=== PATIENT | female | born 1935 | race Caucasian/White ===

== ENCOUNTER 2017-01-31 07:57 | Day surgery (SDC) | payer OTHER ==
[2017-01-31] MEDS ORDERED: FAMOTIDINE 20 MG TAB PO ONE (08:05)
[2017-01-31] MEDS ORDERED: ASPIRIN EC 325 MG TAB PO ONE (08:05)
[2017-01-31] MEDS ORDERED: NS 1,000 ML IV ONE (08:05)
[2017-01-31] MEDS ORDERED: DIAZEPAM 5 MG TAB PO ONE (08:05)
[2017-01-31] MEDS ORDERED: diphenhydrAMINE 25 MG CAP PO ONE (08:05)
--- NOTE | 2017-01-31 08:32 | CPEKG ---
Heart Rate: 47 RR Interval: 1277 P-R Interval: 228 QRSD Interval: 106 QT Interval: 488 QTC Interval: 432 P [place]: 34 QRS [place]: -57 T Wave [place]: 55 EKG Severity - ABNORMAL ECG - EKG Impression: SINUS BRADYCARDIA EKG Impression: LEFT ANTERIOR FASCICULAR BLOCK EKG Impression: LEFT VENTRICULAR HYPERTROPHY Electronically Signed By: Stevie White 31-Jan-2017 11:12:08
[2017-01-31 08:51] LABS: % IMMATURE GRANULYOCYTES 0.3 % (0.0-1.1); ABSOLUTE IMMATURE GRANULOCYTES 0.03 10^3/uL (0.00-0.10); ADD DIFF? NO; ADD MORPH? NO; ADD SCAN? NO; ATYPICAL LYMPHOCYTE FLAG 0 (0-99); FRAGMENT RBC FLAG 0 (0-99); HEMATOCRIT 46.1 % (38.0-47.0); HEMOGLOBIN 15.6 g/dL (12.6-16.3); LEFT SHIFT FLG 0 (0-99); LIPEMIA HEMOLYSIS FLAG 90 (0-99); MEAN CELL HEMOGLOBIN 30.4 pg (27.9-34.1); MEAN CELL HEMOGLOBIN CONCENTR. 33.8 g/dL (32.4-36.7); MEAN CELL VOLUME 89.9 fL (81.5-99.8); MEAN PLATELET VOLUME 9.3 fL (8.7-11.7); PLATELET CLUMPS FLAG 10 (0-99); PLATELET COUNT 257 10^3/uL (150-400); RED BLOOD CELL COUNT 5.13 10^6/uL (4.18-5.33); RED CELL DISTRIBUTION WIDTH 13.4 % (11.5-15.2)
[2017-01-31 08:59] LABS: INR 1.09 (0.83-1.16)
[2017-01-31 09:03] LABS: ANION GAP 11 mEq/L (8-16); CALCIUM 9.8 mg/dL (8.5-10.4); CARBON DIOXIDE 25 mEq/l (22-31); CHLORIDE 105 mEq/L (97-110); CHOLESTEROL 145 mg/dL (140-220); CHOLESTEROL/HDL RATIO 2.34 RATIO (1.00-4.44); CREATININE 1.4 mg/dL (0.6-1.0); GLOMERULAR FILTRATION RATE 36; GLUCOSE 87 mg/dL (70-100); HIGH DENSITY LIPOPROTEIN 62 mg/dL (40-85); LDL/HDL RATIO 0.89 RATIO (1.00-3.22); LOW DENSITY LIPOPROTEIN 55 mg/dL (80-100); MAGNESIUM 2.3 mg/dL (1.6-2.3); NON-HIGH DENSITY LIPOPROTEIN 83 mg/dL (90-129); POTASSIUM 5.1 mEq/L (3.5-5.2); SODIUM 141 mEq/L (134-144); TRIGLYCERIDE 143 mg/dL (35-135); VERY LOW DENSITY LIPOPROTEINS 28 mg/dL (8-25)
[2017-01-31] MEDS ORDERED: LIDOCAINE 1% 300 MG/30 ML SDV ONE (09:39)
[2017-01-31] MEDS ORDERED: fentaNYL 100 MCG/2 ML INJ ONE (09:40)
[2017-01-31] MEDS ORDERED: MIDAZOLAM 2 MG/2 ML VIAL ONE (09:40)
[2017-01-31] MEDS ORDERED: IOPAMIDOL (ISOVUE-370) 150 ML BTL IV ONE (09:40)
[2017-01-31] MEDS ORDERED: ATROPINE SULFATE 1 MG/10 ML SYR ONE (11:12)
--- NOTE | 2017-01-31 11:26 | PDDXCAT ---
Diagnostic Cath Note - . 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 LAD: Mid-LAD 70-80% with competitive flow distally; large first diagonal without significant disease. LCX: Mid-circumflex 100%. RCA: Stented segment in proximal RCA patent; o/w mild irregularities. EDP: N/A LVEF: No LV-gram secondary to aortic stenosis and renal insufficiency. - Findings-Right Heart Catheterization RA: 3 mmHg RV: 31/7 mmHg PA: 31/9/16 mmHg (O2 sat 71.3%) PAOP: 10 mmHg AO: 146/49/82 mmHg (O2 sat 89.9%) CO: 5.92 L/min CI: 3.17 L/min/sq mtr Complications: None Estimated blood loss: <50ml Closure method: manual pressure Assessment: 1) Coronary artery disease as described above. 2) Patent ROMAN to LAD graft. 3) Known occlusions of separate SVGs to OM branch and distal RCA. 4 ) Patent proximal RCA stent site. 5) Normal right heart pressures. 6) Minimal aortoiliac atherosclerosis; good caliber common iliac and femoral vessels bilaterally. Plan: The patient will be following up at the [facility] for further consideration of TAVR.
== END 2017-01-31 15:18 | disposition home or self-care (01) ==
LOC: FCATH 07:57
PROVIDERS: ATTEND Internal Medicine Interventional Cardiology
PROC: 4A023N7 Measurement of Cardiac Sampling and Pressure, Left Heart, Percutaneous Approach (ICD-10-PCS; principal; 2017-01-31)
PROC: B2151ZZ Fluoroscopy of Left Heart using Low Osmolar Contrast (ICD-10-PCS; principal; 2017-01-31)
PROC: B2111ZZ Fluoroscopy of Multiple Coronary Arteries using Low Osmolar Contrast (ICD-10-PCS; principal; 2017-01-31)
DX: I35.0 Nonrheumatic aortic (valve) stenosis (principal); I25.10 Atherosclerotic heart disease of native coronary artery without angina pectoris; E78.00 Pure hypercholesterolemia, unspecified; I10 Essential (primary) hypertension; E78.5 Hyperlipidemia, unspecified; I48.0 Paroxysmal atrial fibrillation
CPT/HCPCS: J0461; J1644; J2250; J3010; Q9967

== ENCOUNTER 2017-10-08 18:45 | Emergency (ER) | payer OTHER ==
--- NOTE | 2017-10-08 19:22 | EDPHY ---
H & P Stated Complaint: heart fluttering starting this morning, has ppm Time Seen by Provider: 10/08/17 19:05 HPI/ROS: CHIEF COMPLAINT: Palpitations HISTORY OF PRESENT ILLNESS: The patient presents to the emergency department with palpitations for the past day. The patient has a history of a TAVR and pacemaker performed at [facility] in February of 2017. The patient is currently anticoagulated. 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 The patient denies any chest pain, fever, cough or congestion. She has not had syncope. The patient does have a history of CABG. She currently is under the care of Dr. Wright from Cardiology. REVIEW OF SYSTEMS: A comprehensive 10 point review of systems is otherwise negative aside from elements mentioned in the history of present illness. Source: Patient Exam Limitations: No limitations - Personal History Current Tetanus/Diphtheria Vaccine: Yes Current Tetanus Diphtheria and Acellular Pertussis (TDAP): Yes Tetanus Vaccine Date: < 10 years - Medical/Surgical History Hx Asthma: No Hx Chronic Respiratory Disease: No Hx Diabetes: No Hx Cardiac Disease: Yes Hx Renal Disease: No Hx Cirrhosis: No Hx Alcoholism: No Hx HIV/AIDS: No Hx Splenectomy or Spleen Trauma: No Other PMH: ppm, afib, htn, hyperlipidemia, CABG, stent, total knee, cataract sx , aortic valve - Social History Smoking Status: Never smoked - Physical Exam Exam: General Appearance: Alert, no distress Eyes: Pupils equal and round no pallor or injection ENT, Mouth: Mucous membranes moist Respiratory: There are no retractions, lungs are clear to auscultation Cardiovascular: Regular rate and rhythm Gastrointestinal: Abdomen is soft and nontender, no masses, bowel sounds normal Neurological: A&O, normal motor function, normal sensory exam, normal cranial nerves Skin: Warm and dry, no rashes Musculoskeletal: Neck is supple nontender Extremities: symmetrical, full range of motion Constitutional: Initial Vital Signs Temperature (C) 36.5 C 10/08/17 18:48 Heart Rate 65 10/08/17 18:48 Respiratory Rate 20 10/08/17 18:48 Blood Pressure 155/81 H 10/08/17 18:48 O2 Sat (%) 96 10/08/17 18:48 O2 Delivery Mode Room Air Allergies/Adverse Reactions: MANNY Inhibitors Allergy (Verified 10/08/17 18:47) morphine Allergy (Verified 02/11/18 18:47) Sulfa (Sulfonamide Antibiotics) Allergy (Verified 10/08/17 18:47) Home Medications: Medication Instructions Recorded Bystolic 10/08/17 CLONAZEPAM 10/08/17 Crestor 10/08/17 Pradaxa 10/08/17 amLODIPine BESYLATE 10/08/17 Medical Decision Making - Diagnostics EKG Interpretation: EKG: Complete interpretation has been separately recorded in the [facility] archive. Summary impression: Paced rhythm with occasional wide complex regular tachycardia. ED Course/Re-evaluation: The patient presents the ED with a chief complaint of palpitations and is noted to have an episodic wide complex tachycardia. I did curbside Dr. De León who is on-call for Cardiology and we reviewed the patient's EKG. At this point time it is uncertain whether the patient is having a pacemaker mediated tachycardia or atrial arrhythmia. We have contacted the pacemaker rep who is in route to interrogate the device. Per [employer]'s initial recommendation, no anti-arrhythmic medications have been ordered pending results of the pacemaker interrogation. The patient was placed on a spooler operator automatic. She remained hemodynamically stay throughout her bouts of tachycardia. 9:30 p.m.: The patient was evaluated by the pacemaker patient access representative. She is noted to have a pacemaker mediated tachycardia. He has reprogrammed her pacemaker. I informed Dr. De León of the findings. The patient will be discharged from the emergency department and follow up with her regular safety council director as scheduled. Differential Diagnosis: Differential diagnosis considered includes atrial fibrillation, atrial flutter, ventricular tachycardia, pacemaker mediated tachycardia - Data Points Laboratory Results: Laboratory Results 10/08/17 19:05 10/08/17 19:05 10/08/17 10/08/17 19:05 19:05 WBC 10.42 10^3/uL H 10^3/uL (3.80-9.50) RBC 5.30 10^6/uL 10^6/uL (4.18-5.33) Hgb 15.6 g/dL g/dL (12.6-16.3) Hct 46.5 % % (38.0-47.0) MCV 87.7 fL fL (81.5-99.8) MCH 29.4 pg pg (27.9-34.1) MCHC 33.5 g/dL g/dL (32.4-36.7) RDW 14.5 % % (11.5-15.2) Plt Count 219 10^3/uL 10^3/uL (150-400) MPV 9.6 fL fL (8.7-11.7) Neut % (Auto) 52.0 % % (39.3-74.2) Lymph % (Auto) 37.2 % % (15.0-45.0) Sac % (Auto) 8.3 % % (4.5-13.0) Eos % (Auto) 1.4 % % (0.6-7.6) Baso % (Auto) 0.7 % % (0.3-1.7) Nucleat RBC Rel Count 0.0 % % (0.0-0.2) Absolute Neuts (auto) 5.41 10^3/uL 10^3/uL (1.70-6.50) Absolute Lymphs (auto) 3.88 10^3/uL H 10^3/uL (1.00-3.00) Absolute Monos (auto) 0.87 10^3/uL H 10^3/uL (0.30-0.80) Absolute Eos (auto) 0.15 10^3/uL 10^3/uL (0.03-0.40) Absolute Basos (auto) 0.07 10^3/uL 10^3/uL (0.02-0.10) Absolute Nucleated RBC 0.00 10^3/uL 10^3/uL (0-0.01) Immature Gran % 0.4 % % (0.0-1.1) Immature Gran # 0.04 10^3/uL 10^3/uL (0.00-0.10) Sodium 144 mEq/L mEq/L (135-145) Potassium 4.1 mEq/L mEq/L (3.5-5.2) Chloride 104 mEq/L mEq/L (97-110) Carbon Dioxide 24 mEq/l mEq/l (22-31) Anion Gap 16 mEq/L mEq/L (8-16) BUN 25 mg/dL H mg/dL (7-23) Creatinine 1.3 mg/dL H mg/dL (0.6-1.0) Estimated GFR 39 Glucose 109 mg/dL H mg/dL (70-100) Calcium 9.9 mg/dL mg/dL (8.5-10.4) Medications Given: Discontinued Medications Sodium Chloride (Ns) 1,000 mls @ 0 mls/hr IV EDNOW ONE; Wide Open PRN Reason: Protocol Stop: 10/08/17 19:29 Last Admin: 10/08/17 19:37 Dose: 1,000 mls Amiodarone HCl (Amiodarone Hcl) 100 mls @ 600 mls/hr IV ONCE ONE Stop: 10/08/17 19:47 Last Admin: 10/08/17 19:56 Dose: Not Given Departure - Departure Disposition: Home, Routine, Self-Care Clinical Impression: Pacemaker-mediated tachycardia Condition: Good Instructions: Heart Palpitations (ED) Additional Instructions: 1. Please return to the ED for recurrent palpitations, chest pain or shortness of breath. 2. Please follow up with your primary care provider and safety council director as scheduled. 3. The pacemaker patient access representative has reprogrammed your device to suppress the "fluttering" you have been feeling today. Referrals: Carolin Del Rio MD [Primary Care Provider] - As per Instructions
[2017-10-08] MEDS ORDERED: NS 1,000 ML IV ONE (19:28)
[2017-10-08 19:33] LABS: PLATELET COUNT 219 10^3/uL (150-400)
--- NOTE | 2017-10-08 19:34 | CPEKG ---
Heart Rate: 119 RR Interval: 504 P-R Interval: 128 QRSD Interval: 116 QT Interval: 388 QTC Interval: 547 P [place]: 0 QRS [place]: -64 T Wave [place]: -40 EKG Severity - ABNORMAL ECG - EKG Impression: VENTRICULAR-PACED COMPLEXES Electronically Signed By: Herb Mcgill 08-Oct-2017 20:39:00
[2017-10-08] MEDS ORDERED: AMIODARONE HCL 100 ML IV ONE (19:38)
[2017-10-08 21:14] VITALS: RESP 18
[2017-10-08 21:37] VITALS: BP 122/92; PULSE 62; TEMP 98.1; O2SAT 97
== END 2017-10-08 21:44 | disposition home or self-care (01) ==
DX: T82.198A Other mechanical complication of other cardiac electronic device, initial encounter (principal); I10 Essential (primary) hypertension; Z95.0 Presence of cardiac pacemaker; Z95.1 Presence of aortocoronary bypass graft; Y82.8 Other medical devices associated with adverse incidents
CPT/HCPCS: 93005; 96360; 99284; J0282